=== PATIENT | male | born 1955 | race Caucasian/White ===

== ENCOUNTER 2021-07-02 18:00 | Emergency (ER) | payer OTHER ==
[~2021-07-02] VITALS: Ht 170.2 cm; Wt 79.4 kg
[2021-07-02] MEDS ORDERED: BENADRYL ALLERG25 MG PO (20:10)
== END 2021-07-02 20:19 | disposition home or self-care (01) ==
LOC: ER 18:00
DX: R21 Rash and other nonspecific skin eruption (principal)

== ENCOUNTER 2024-09-26 13:18 | Emergency (ER) | payer OTHER ==
[~2024-09-26] VITALS: Ht 170.2 cm; Wt 81.6 kg
[~2024-09-26 13:18] MED LIST: BENADRYL ALLERG25 MG PO
[2024-09-26] MEDS ORDERED: GLUMETZA500 MG (14:16)
[2024-09-26 15:46] LABS: HEMATOCRIT 45.4 % (39.0-48.0); HEMOGLOBIN 15.6 g/dL (13-16.00); MEAN CELL VOLUME 92.2 fL (80.0-100.00); MEAN CORPUSCULAR HEMOGLOBIN 31.6 pg (27.00-32.0); MEAN CORPUSCULAR HGB CONC 34.3 g/dl (32.0-36.0); PLATELET COUNT 253 K/uL (150-450); RED BLOOD COUNT 4.93 M/uL (4.00-6.00); RED CELL DISTRIBUTION WIDTH 13.5 % (11.5-14.5)
[2024-09-26 15:48] LABS: PH,URINE 6.5 (5.0-8.0); URINE APPEARANCE Clear; URINE BILIRRUBIN Negative (NEGATIVE); URINE BLOOD Negative; URINE COLOR Yellow; URINE GLUCOSE Negative (NEGATIVE); URINE KETONE Negative (NEGATIVE); URINE LEUKOCYTE Negative; URINE NITRATE Negative; URINE PROTEIN Negative (NEGATIVE); URINE UROBILINOGEN 0.2 E.U./dl
[2024-09-26 15:50] LABS: URINE BACTERIA 14.6 uL (0.0-1933)
[2024-09-26 15:51] LABS: URINE CAST 0.14 uL (0.0-1.40); URINE RBC 0.2 uL (0.0-20.8); URINE WBC 1.4 uL (0.0-23.2)
[2024-09-26 16:19] LABS: CALCIUM 10.4 mg/dL (8.5-10.1); GFR 74.53; POTASSIUM 4.71 mEq/L (3.5-5.1)
[2024-09-26] MEDS ORDERED: TOPROL XL25 M1 PO (18:08)
[2024-09-26] MEDS ORDERED: METOPROLOL SUCCINATE 25 MG TAB.SR.24H PO ONE (18:15)
== END 2024-09-26 18:28 | disposition home or self-care (01) ==
LOC: ER 13:20
PROVIDERS: Emergency Medicine
DX: R00.2 Palpitations (principal); R42 Dizziness and giddiness; Z20.822 Contact with and (suspected) exposure to COVID-19